=== PATIENT | female | born 1965 | race African-American/Black ===

== ENCOUNTER 2017-12-25 11:00 | Emergency (ER) | payer SELFPAY ==
[2017-12-25 12:17] LABS: INFLUENZA A PATIENT NEGATIVE (NEGATIVE); INFLUENZA B PATIENT NEGATIVE (NEGATIVE); OBC FLU VALID
== END 2017-12-25 13:03 | disposition home or self-care (01) ==
LOC: ER 11:00
DX: B34.9 Viral infection, unspecified (principal); I10 Essential (primary) hypertension
CPT/HCPCS: 71046; 87804; 87804-59; 99285-25

== ENCOUNTER 2018-05-19 10:08 | Emergency (ER) | payer SELFPAY ==
[2018-05-19] MEDS: KETOROLAC 60 MG/2 ML INJ. IM (10:38)
== END 2018-05-19 10:57 | disposition home or self-care (01) ==
LOC: ER 10:08
DX: M62.838 Other muscle spasm (principal); M79.1 Myalgia; M25.511 Pain in right shoulder; M54.2 Cervicalgia; I10 Essential (primary) hypertension
CPT/HCPCS: 96372; 99283; J1885

== ENCOUNTER 2019-01-30 10:49 | Emergency (ER) | payer SELFPAY ==
[~2019-01-30] VITALS: Ht 160 cm; Wt 70.3 kg
[~2019-01-30 10:49] MED LIST: ORPH100T PO; OSEL75CA PO
[2019-01-30] MEDS ORDERED: LISI1TAB7 PO (10:52)
[2019-01-30] MEDS ORDERED: ATORVASTATIN CA80 MG PO (10:52)
[2019-01-30] MEDS ORDERED: NAPROXEN 500 MG TABLET PO STA (11:24)
[2019-01-30] MEDS ORDERED: HYDROcodone/APAP 5/325MG 1 TAB TABLET PO ONE (11:30)
[2019-01-30] MEDS ORDERED: CYCLOBENZAPRINE 10 MG TABLET. PO ONE (11:30)
--- NOTE | 2019-01-30 11:45 | RAD ---
Portable chest, 01/30/2019: HISTORY: Mid back pain, chills Comparison is made to a study from 12/25/2017. The heart size is normal. The lungs are clear. There is no evidence of pleural fluid. IMPRESSION: No acute cardiopulmonary abnormality is detected. Electronically signed by: Vic Altamirano MD (01/30/2019 11:43 AM) [facility]
[2019-01-30 11:51] LABS: BASO # 0.1 x10^3/uL (0.0-0.2); BASO % 1 % (0-3); EOS # 0.1 x10^3/uL (0.0-0.7); EOS % 1 % (0-3); HEMATOCRIT 41.3 % (36.0-47.0); HEMOGLOBIN 13.7 g/dL (12.0-15.5); LYMPH # 2.2 x10^3/uL (1.0-4.8); LYMPH % 31 % (24-48); MEAN CORPUSCULAR HEMOGLOBIN 28 pg (25-35); MEAN CORPUSCULAR HGB CONC 33 g/dL (31-37); MEAN CORPUSCULAR VOLUME 85 fL (79-100); MONO # 0.3 x10^3/uL (0.0-1.1); MONO % 4 % (0-9); NEUT # 4.7 x10^3uL (1.8-7.7); NEUT % 63 % (31-73); PLATELET COUNT 242 x10^3/uL (140-400); RED BLOOD COUNT 4.84 x10^6/uL (3.50-5.40); RED CELL DISTRIBUTION WIDTH 14.7 % (11.5-14.5); WHITE BLOOD COUNT 7.4 x10^3/uL (4.0-11.0)
[2019-01-30 12:08] LABS: ALBUMIN 3.5 g/dL (3.4-5.0); ALBUMIN/GLOBULIN RATIO 0.8 (1.0-1.7); CALCIUM 9.2 mg/dL (8.5-10.1); CREATININE 0.7 mg/dL (0.6-1.0); GFR 105.1; MAGNESIUM 2.1 mg/dL (1.8-2.4); TOTAL BILIRUBIN 0.5 mg/dL (0.2-1.0); TOTAL PROTEIN 7.9 g/dL (6.4-8.2)
[2019-01-30 12:09] LABS: INFLUENZA A PATIENT NEGATIVE (NEGATIVE); INFLUENZA B PATIENT NEGATIVE (NEGATIVE)
[2019-01-30 12:10] LABS: POTASSIUM 3.4 mmol/L (3.5-5.1)
--- NOTE | 2019-01-30 13:07 | EKG ---
[facility] [address] [place] [address] Test Date: 2019-01-30 Test Time: 11:50:59 Pat Name: EVA CABRERA Department: Room: Gender: F Skein Yarn Dyer: : 1965 Requested By: ÁNGELA MCLAUGHLIN Order Number: [id number] Reading MD: Mandeep Agosto Measurements Intervals [place] Rate: 75 P: 141 SC: 126 QRS: 98 QRSD: 84 T: 125 QT: 380 QTc: 427 Interpretive Statements SINUS RHYTHM RIGHTWARD AXIS QRS(T) CONTOUR ABNORMALITY CONSIDER HIGH LATERAL INFARCT Electronically Signed On 02-06-2019 12:58:54 CDT by Mandeep Agosto
[2019-01-30 13:52] LABS: BILIRUBIN,URINE NEGATIVE (NEG); CLARITY,URINE CLEAR; COLOR,URINE YELLOW; NITRITE,URINE NEGATIVE (NEG); PROTEIN,URINE NEGATIVE (NEG-TRACE); UROBILINOGEN,URINE 0.2 mg/dL (0.2 mg/dL)
[2019-01-30 13:59] LABS: BACTERIA,URINE FEW /HPF (0-FEW); BARBITURATES NEG (NEG); BENZODIAZEPINES NEG (NEG); CANNABINOIDS POS (NEG); COCAINE NEG (NEG); METHADONE NEG (NEG); OPIATES POS (NEG); PHENCYCLIDINE NEG (NEG); RBC,URINE OCC /HPF (0-2); SQUAMOUS EPITHELIAL CELL,UR MOD /LPF; WBC,URINE 0 /HPF (0-4)
[2019-01-30 14:00] LABS: AMPHETAMINE/METHAMPHETAMINE NEG (NEG)
[2019-01-30] MEDS ORDERED: DICL50TA4 PO (14:37)
[2019-01-30] MEDS ORDERED: CYCL10TA2 PO (14:37)
--- NOTE | 2019-01-30 14:38 | PHYS DOC ---
Past Medical History Past Medical History: Hypertension Past Surgical History: No Surgical History Alcohol Use: None Drug Use: None Adult General Chief Complaint Chief Complaint: GENERALIZED BODY ACHES HPI HPI Patient is a 54 year old female with a history of hypertension who presents to the ED today complaining of mild mid back pain, diarrhea, nasal congestion and chills that began yesterday. Patient denies any fever. Denies any nausea vomiting. Denies any chest pain or shortness of breath. Patient denies any alleviating or exacerbating factors for her symptoms. Denies any abdominal pain. Review of Systems Review of Systems Constitutional: Reports chills, denies fever[] Eyes: Denies change in visual acuity, redness, or eye pain [] HENT: Reports nasal congestion, denies sore throat [] Respiratory: Denies cough or shortness of breath [] Cardiovascular: No additional information not addressed in HPI [] GI: Reports diarrhea. Denies abdominal pain, nausea, vomiting, bloody stools : Denies dysuria or hematuria [] Musculoskeletal: Denies back pain or joint pain [] Integument: Denies rash or skin lesions [] Neurologic: Denies headache, focal weakness or sensory changes [] All other systems were reviewed and found to be within normal limits, except as documented in this note. Current Medications Current Medications Current Medications Medications (Trade) Dose Ordered Sig/Zara Start Time Stop Time Status Last Admin Dose Admin Acetaminophen/ Hydrocodone Bitart (Lortab 5/325) 2 tab 1X ONCE 01/30/19 11:30 01/30/19 11:31 DC 01/30/19 11:47 2 TAB Cyclobenzaprine HCl (Flexeril) 10 mg 1X ONCE 01/30/19 11:30 01/30/19 11:31 DC 01/30/19 11:46 10 MG Naproxen (Naprosyn) 500 mg 1X STAT 01/30/19 11:24 01/30/19 11:29 DC 01/30/19 11:46 500 MG Allergies Allergies Allergies Coded Allergies Type Severity Reaction Last Updated Verified No Known Drug Allergies 12/25/17 No Physical Exam Physical Exam Constitutional: Well developed, well nourished, no acute distress, non-toxic appearance. [] HENT: Normocephalic, atraumatic, bilateral external ears normal, oropharynx moist, no oral exudates, nose normal. [] Eyes: PERRLA, EOMI, conjunctiva normal, no discharge. [] Neck: Normal range of motion, no tenderness, supple, no stridor. [] Cardiovascular:Heart rate regular rhythm, no murmur [] Lungs & Thorax: Bilateral breath sounds clear to auscultation [] Abdomen: Bowel sounds normal, soft, no tenderness, no masses, no pulsatile masses. [] Skin: Warm, dry, no erythema, no rash. [] Back: No tenderness, no CVA tenderness. [] Extremities: No tenderness, no cyanosis, no clubbing, ROM intact, no edema. [] Neurologic: Alert and oriented X 3, normal motor function, normal sensory function, no focal deficits noted. [] Psychologic: Affect normal, judgement normal, mood normal. [] Current Patient Data Vital Signs Vital Signs Date Time Temp Pulse Resp B/P (MAP) Pulse Ox O2 Delivery O2 Flow Rate FiO2 01/30/19 11:47 20 01/30/19 11:10 98.4 92 156/74 (101) 100 Room Air 98.4 Lab Values Laboratory Tests Test 01/30/19 11:41 01/30/19 13:44 White Blood Count 7.4 x10^3/uL (4.0-11.0) Red Blood Count 4.84 x10^6/uL (3.50-5.40) Hemoglobin 13.7 g/dL (12.0-15.5) Hematocrit 41.3 % (36.0-47.0) Mean Corpuscular Volume 85 fL (79-100) Mean Corpuscular Hemoglobin 28 pg (25-35) Mean Corpuscular Hemoglobin Concent 33 g/dL (31-37) Red Cell Distribution Width 14.7 % (11.5-14.5) H Platelet Count 242 x10^3/uL (140-400) Neutrophils (%) (Auto) 63 % (31-73) Lymphocytes (%) (Auto) 31 % (24-48) Monocytes (%) (Auto) 4 % (0-9) Eosinophils (%) (Auto) 1 % (0-3) Basophils (%) (Auto) 1 % (0-3) Neutrophils # (Auto) 4.7 x10^3uL (1.8-7.7) Lymphocytes # (Auto) 2.2 x10^3/uL (1.0-4.8) Monocytes # (Auto) 0.3 x10^3/uL (0.0-1.1) Eosinophils # (Auto) 0.1 x10^3/uL (0.0-0.7) Basophils # (Auto) 0.1 x10^3/uL (0.0-0.2) D-Dimer (Eliva) 0.35 ug/mlFEU (0.00-0.50) Sodium Level 139 mmol/L (136-145) Potassium Level 3.4 mmol/L (3.5-5.1) L Chloride Level 102 mmol/L (98-107) Carbon Dioxide Level 28 mmol/L (21-32) Anion Gap 9 (6-14) Blood Urea Nitrogen 12 mg/dL (7-20) Creatinine 0.7 mg/dL (0.6-1.0) Estimated GFR (Cockcroft-Gault) 105.1 BUN/Creatinine Ratio 17 (6-20) Glucose Level 114 mg/dL (70-99) H Calcium Level 9.2 mg/dL (8.5-10.1) Magnesium Level 2.1 mg/dL (1.8-2.4) Total Bilirubin 0.5 mg/dL (0.2-1.0) Aspartate Amino Transferase (AST) 21 U/L (15-37) Alanine Aminotransferase (ALT) 22 U/L (14-59) Alkaline Phosphatase 89 U/L (46-116) Creatine Kinase 149 U/L (26-192) Creatine Kinase MB (Mass) 0.6 ng/mL (0.0-3.6) Creatine Kinase MB Relative Index 0.4 % (0-4) Troponin I Quantitative < 0.017 ng/mL (0.000-0.055) YU-Kef-K-Type Natriuretic Peptide 94 pg/mL (0-124) Total Protein 7.9 g/dL (6.4-8.2) Albumin 3.5 g/dL (3.4-5.0) Albumin/Globulin Ratio 0.8 (1.0-1.7) L Lipase 42 U/L (73-393) L Thyroid Stimulating Hormone (TSH) 1.652 uIU/mL (0.358-3.74) Influenza Type A Antigen Negative (NEGATIVE) Influenza Type B Antigen Negative (NEGATIVE) Urine Collection Type Unknown Urine Color Yellow Urine Clarity Clear Urine pH 7.0 Urine Specific [place] 1.010 Urine Protein Negative mg/dL (NEG-TRACE) Urine Glucose (UA) Negative mg/dL (NEG) Urine Ketones (Stick) Negative mg/dL (NEG) Urine Blood Trace (NEG) Urine Nitrite Negative (NEG) Urine Bilirubin Negative (NEG) Urine Urobilinogen Dipstick 0.2 mg/dL (0.2 mg/dL) Urine Leukocyte Esterase Negative (NEG) Urine RBC Occ /HPF (0-2) Urine WBC 0 /HPF (0-4) Urine Squamous Epithelial Cells Mod /LPF Urine Bacteria Few /HPF (0-FEW) Urine Opiates Screen Pos (NEG) Urine Methadone Screen Neg (NEG) Urine Barbiturates Neg (NEG) Urine Phencyclidine Screen Neg (NEG) Urine Amphetamine/Methamphetamine Neg (NEG) Urine Benzodiazepines Screen Neg (NEG) Urine Cocaine Screen Neg (NEG) Urine Cannabinoids Screen Pos (NEG) Urine Ethyl Alcohol Neg (NEG) Laboratory Tests 01/30/19 11:41 Laboratory Tests 01/30/19 11:41 EKG EKG Interpreted by Dr. Chavis sinus rhythm HR 75 no STEMI[] Radiology/Procedures Radiology/Procedures []PROCEDURE: PORTABLE CHEST 1V Portable chest, 01/30/2019: HISTORY: Mid back pain, chills Comparison is made to a study from 12/25/2017. The heart size is normal. The lungs are clear. There is no evidence of pleural fluid. IMPRESSION: No acute cardiopulmonary abnormality is detected. Electronically signed by: Vic Altamirano MD (01/30/2019 11:43 AM) [facility] DICTATED and SIGNED BY: VIC ALTAMIRANO MD DATE: 01/30/19 1143 Course & Med Decision Making Course & Med Decision Making Pertinent Labs and Imaging studies reviewed. (See chart for details) This is a 54-year-old female patient presenting to the ED today with nasal congestion, body, chills, diarrhea, and mid back pain, symptoms began yesterday. Patient's labs are negative for any acute findings including cardiac workup, urine negative for any infection. D-dimer is normal. Pain appears musculoskeletal. Patient is in no distress, was discharged to home. Follow-up with primary care doctor in one week. OTC medications for diarrhea Dragon Disclaimer Dragon Disclaimer This electronic medical record was generated, in whole or in part, using a voice recognition dictation system. Departure Departure Impression: Primary Impression: Back pain Additional Impressions: Chills Upper respiratory infection Disposition: 01 HOME, SELF-CARE Condition: STABLE Referrals: NO PCP (PCP) follow up in 1 week Patient Instructions: Back Pain, Adult, Diarrhea, [id number], Upper Respiratory Infection, Adult, [id number] Additional Instructions: You were evaluated in the emergency room for multiple complaints including chills, congestion, diarrhea, back pain, your work up in the emergency room is negative. Use the prescribed medications as needed. You can take over-the- counter Imodium for your diarrhea. Scripts Diclofenac Sodium (DICLOFENAC SODIUM) 50 Mg Tablet.dr 1 TAB PO BID, #20 TAB 0 Refills Prov: ÁNGELA MCLAUGHLIN APRN 01/30/19 Cyclobenzaprine Hcl (CYCLOBENZAPRINE HCL) 10 Mg Tablet 1 TAB PO TID, #30 TAB Prov: ÁNGELA MCLAUGHLIN APRN 01/30/19 Problem Qualifiers Primary Impression: Back pain Back pain location: thoracic back pain Chronicity: unspecified Back pain laterality: bilateral Qualified Codes: M54.6 - Pain in thoracic spine Additional Impressions: Upper respiratory infection URI type: unspecified URI Qualified Codes: J06.9 - Acute upper respiratory infection, unspecified ÁNGELA MCLAUGHLIN APRN Jan 30, 2019 14:38
[2019-01-30 14:44] VITALS: BP 148/77
== END 2019-01-30 14:48 | disposition home or self-care (01) ==
LOC: ER 10:49
DX: M54.6 Pain in thoracic spine (principal); J06.9 Acute upper respiratory infection, unspecified; R68.83 Chills (without fever); I10 Essential (primary) hypertension
CPT/HCPCS: 36415; 71045; 80053; 80307; 81001; 82553; 83690; 83735; 83880; 84443; 84484; 85025; 85379; 87804; 93005; 99285

== ENCOUNTER 2019-10-04 08:25 | Emergency (ER) | payer SELFPAY ==
[~2019-10-04] VITALS: Ht 160 cm; Wt 70.3 kg
[~2019-10-04 08:25] MED LIST changes: +ATORVASTATIN CA80 MG PO; +CYCL10TA2 PO; +DICL50TA4 PO; +LISI1TAB20 PO
[2019-10-04 08:38] VITALS: BP 133/89
[2019-10-04] MEDS ORDERED: IV NORMAL SALINE 1000ML BAG 1,000 ML IV SCH (08:57)
[2019-10-04] MEDS ORDERED: ORPHENADRINE CITRATE 60 MG/2 ML VIAL. IV ONE (09:00)
[2019-10-04] MEDS ORDERED: KETOROLAC 30 MG/ML VIAL. IV ONE (09:00)
--- NOTE | 2019-10-04 09:03 | PHYS DOC ---
Past Medical History Past Medical History: Hypertension Past Surgical History: No Surgical History Smoking: Cigarettes Alcohol Use: None Drug Use: None Adult General Chief Complaint Chief Complaint: FLANK PAIN HPI HPI Patient is a 54 year old female patient with history of hypertension and dyslip idemia who presents with complaint of flank pain. Patient complaining of left lower back and flank pain since 2200 last night as a constant and sharp pain without radiation that getting worse with movement. Patient denies nausea, vomiting, urinary symptoms, fever and chills, history of the same pain. Patient states she had 3 episodes of diarrhea since the pain was started. Patient rated her pain 10 over 10 and denies taking any pain medication since her pain was and started last night. Review of Systems Review of Systems Constitutional: Denies fever or chills [] Eyes: Denies change in visual acuity, redness, or eye pain [] HENT: Denies nasal congestion or sore throat [] Respiratory: Denies cough or shortness of breath [] Cardiovascular: No additional information not addressed in HPI [] GI: Denies abdominal pain, nausea, vomiting, bloody stools or diarrhea [] : Denies dysuria or hematuria [] Musculoskeletal: Reports back pain, denies joint pain [] Integument: Denies rash or skin lesions [] Neurologic: Denies headache, focal weakness or sensory changes [] Endocrine: Denies polyuria or polydipsia [] All other systems were reviewed and found to be within normal limits, except as documented in this note. Current Medications Current Medications Current Medications Medications (Trade) Dose Ordered Sig/Zara Start Time Stop Time Status Last Admin Dose Admin Fentanyl Citrate (Fentanyl 2ml Vial) 50 mcg 1X ONCE 10/04/19 09:30 10/04/19 09:31 DC 10/04/19 09:41 50 MCG Ketorolac Tromethamine (Toradol 30mg Vial) 30 mg 1X ONCE 10/04/19 09:00 10/04/19 09:01 DC 10/04/19 09:12 30 MG Orphenadrine Citrate (Norflex) 60 mg 1X ONCE 10/04/19 09:00 10/04/19 09:01 DC 10/04/19 09:13 60 MG Potassium Chloride (Klor-Con) 40 meq 1X ONCE 10/04/19 11:45 10/04/19 11:46 Sodium Chloride 1,000 ml @ 1,000 mls/hr Q1H 10/04/19 08:57 10/04/19 09:56 DC 10/04/19 09:12 1,000 MLS/HR Allergies Allergies Allergies Coded Allergies Type Severity Reaction Last Updated Verified No Known Drug Allergies 12/25/17 No Physical Exam Physical Exam Constitutional: Well developed, well nourished, moderate distress, non-toxic appearance. [] HENT: Normocephalic, atraumatic. Eyes: PERRLA, EOMI, conjunctiva normal, no discharge. [] Neck: Normal range of motion, no tenderness, supple, no stridor. [] Cardiovascular:Heart rate regular rhythm, no murmur [] Lungs & Thorax: Bilateral breath sounds clear to auscultation [] Abdomen: Bowel sounds normal, soft, no tenderness, no masses, no pulsatile masses. [] Skin: Warm, dry, no erythema, no rash. [] Back: No tenderness, right lower paraspinal and CVA tenderness. [] Extremities: No tenderness, no cyanosis, no clubbing, ROM intact, no edema. [] Neurologic: Alert and oriented X 3, no focal deficits noted. [] Psychologic: Affect normal, judgement normal, mood normal. [] Current Patient Data Vital Signs Vital Signs Date Time Temp Pulse Resp B/P (MAP) Pulse Ox O2 Delivery O2 Flow Rate FiO2 10/04/19 08:38 98.9 92 12 133/89 (104) 100 Room Air 98.9 Lab Values Laboratory Tests Test 10/04/19 08:40 10/04/19 09:15 Urine Collection Type Unknown Urine Color Yellow Urine Clarity Clear Urine pH 8.0 Urine Specific [place] 1.015 Urine Protein Negative mg/dL (NEG-TRACE) Urine Glucose (UA) Negative mg/dL (NEG) Urine Ketones (Stick) Negative mg/dL (NEG) Urine Blood Small (NEG) Urine Nitrite Negative (NEG) Urine Bilirubin Negative (NEG) Urine Urobilinogen Dipstick 0.2 mg/dL (0.2 mg/dL) Urine Leukocyte Esterase Small (NEG) Urine RBC 3-5 /HPF (0-2) Urine WBC Occ /HPF (0-4) Urine Squamous Epithelial Cells Many /LPF Urine Bacteria 0 /HPF (0-FEW) White Blood Count 6.6 x10^3/uL (4.0-11.0) Red Blood Count 4.72 x10^6/uL (3.50-5.40) Hemoglobin 13.7 g/dL (12.0-15.5) Hematocrit 40.6 % (36.0-47.0) Mean Corpuscular Volume 86 fL (79-100) Mean Corpuscular Hemoglobin 29 pg (25-35) Mean Corpuscular Hemoglobin Concent 34 g/dL (31-37) Red Cell Distribution Width 14.3 % (11.5-14.5) Platelet Count 240 x10^3/uL (140-400) Neutrophils (%) (Auto) 63 % (31-73) Lymphocytes (%) (Auto) 30 % (24-48) Monocytes (%) (Auto) 5 % (0-9) Eosinophils (%) (Auto) 1 % (0-3) Basophils (%) (Auto) 1 % (0-3) Neutrophils # (Auto) 4.2 x10^3/uL (1.8-7.7) Lymphocytes # (Auto) 2.0 x10^3/uL (1.0-4.8) Monocytes # (Auto) 0.4 x10^3/uL (0.0-1.1) Eosinophils # (Auto) 0.1 x10^3/uL (0.0-0.7) Basophils # (Auto) 0.0 x10^3/uL (0.0-0.2) Sodium Level 140 mmol/L (136-145) Potassium Level 3.0 mmol/L (3.5-5.1) L Chloride Level 101 mmol/L (98-107) Carbon Dioxide Level 32 mmol/L (21-32) Anion Gap 7 (6-14) Blood Urea Nitrogen 8 mg/dL (7-20) Creatinine 0.8 mg/dL (0.6-1.0) Estimated GFR (Cockcroft-Gault) 90.1 BUN/Creatinine Ratio 10 (6-20) Glucose Level 155 mg/dL (70-99) H Calcium Level 8.9 mg/dL (8.5-10.1) Total Bilirubin 0.3 mg/dL (0.2-1.0) Aspartate Amino Transferase (AST) 12 U/L (15-37) L Alanine Aminotransferase (ALT) 9 U/L (14-59) L Alkaline Phosphatase 81 U/L (46-116) Creatine Kinase 95 U/L (26-192) Total Protein 7.5 g/dL (6.4-8.2) Albumin 3.1 g/dL (3.4-5.0) L Albumin/Globulin Ratio 0.7 (1.0-1.7) L Lipase 37 U/L (73-393) L Laboratory Tests 10/04/19 09:15 Laboratory Tests 10/04/19 09:15 EKG EKG [] Radiology/Procedures Radiology/Procedures [][facility] [address] [place] [address] IMAGING REPORT Signed PATIENT: EVA MALIN ACCOUNT: [id number] : 1965 LOCATION: ER AGE: 54 SEX: F EXAM STATUS: REG ER ORD. PHYSICIAN: LUIS A BLOOM MD REASON: right flank pain PROCEDURE: CT ABDOMEN PELVIS WO CONTRAST CT Abdomen and Pelvis without contrast; CT lumbar spine without contrast History: Right flank pain Technique: Noncontrast CT imaging was performed of the abdomen and pelvis. CT imaging was also performed of the lumbar spine. Multiplanar images are reviewed. Exposure: One or more of the following individualized dose reduction techniques were utilized for this examination: 1. Automated exposure control 2. Adjustment of the mA and/or kV according to patient size 3. Use of iterative reconstruction technique. Comparison: None Findings: There is no hydronephrosis or renal calculus. Ureters in the pelvis are difficult to visualize in their entirety, no convincing ureteral calculus. There is partially calcified nodule right lower lobe near the lung base. Accurate evaluation of abdominal visceral organs is limited without intravenous contrast. There is no obvious abnormality of the spleen, liver, or pancreas. There is no adrenal nodularity. Gallbladder is present without obvious intraluminal abnormality by CT. Accurate evaluation of bowel is limited without oral contrast. There is no significant free air, free fluid, bowel dilatation. Normal caliber appendix is visualized without adjacent inflammatory change. There is some scattered calcified plaque of the abdominal aorta and iliac arteries. Impression: 1. There is no hydronephrosis or convincing urolithiasis. There is no CT evidence of acute appendicitis. Lumbar spine FINDINGS: Lumbar vertebral body stature and AP alignment are maintained. No acute lumbar spine fracture is identified. There is very mild lumbar dextroscoliosis. Intervertebral disc spaces are relatively maintained, mild narrowing greater posteriorly at L5-S1. No significant lumbar spinal stenosis is identified on this nonmyelographic exam. Osseous lumbar neural foramina are not significantly narrowed. There is multilevel lumbar facet degenerative change. There is incomplete fusion of the posterior elements of the more inferior sacrum. IMPRESSION: 1. No acute lumbar spine fracture is identified. No significant lumbar spinal stenosis is identified on this nonmyelographic exam. There is multilevel lumbar facet degenerative change and very mild dextroscoliosis. Electronically signed by: Gely Silva MD (10/04/2019 10:14 AM) [id number] DICTATED and SIGNED BY: GELY SILVA MD DATE: 10/04/19 1014 Course & Med Decision Making Course & Med Decision Making Pertinent Labs and Imaging studies reviewed. (See chart for details) Evaluation of patient in ER showed 54-year-old female patient with complaining of right lower back and flank pain getting worse with movement. Patient treated with IV fluid, Toradol and fentanyl with improvement of her pain. Patient had unremarkable CT of abdomen and pelvis and lumbar spine. Labs showed mild UTI and potassium of 3.0 and treated with oral potassium in ER. Plan to discharge patient home with diagnosis of muscle strain and UTI. I've spoken with the patient and/or caregivers. I've explained the patient's condition, diagnosis and treatment plan based on information available to me at this time. I've answered the patient's and/or caregivers questions and addressed any concerns. The patient and/or caregivers have a good understanding the patient's diagnosis, condition and treatment plan as can be expected at this point. Vital signs have been stabilized. The patient's condition is stable for discharge from the emergency department. The patient will pursue further outpatient evaluation with her primary care provider or other designated consulting physician as outlined in the discharge instructions. Patient and/or caregivers are agreeable to this plan of care and follow-up instructions have been explained in detail. The patient and/or caregivers have received these instructions in written format and expressed understanding of these discharge instructions. The patient and her caregivers are aware that if any significant change in condition or worsening of symptoms should prompt him to immediately return to this of the closest emergency de partment. If an emergent department is not readily available I would encourage him to call 911. Manjinder Disclaimer Dragon Disclaimer This electronic medical record was generated, in whole or in part, using a voice recognition dictation system. Departure Departure Impression: Primary Impression: Acute lumbosacral myofascial strain Additional Impressions: Urinary tract infection Hypokalemia Disposition: HOME, SELF-CARE (at 1132) Condition: IMPROVED Referrals: NO PCP (PCP) Patient Instructions: Hypokalemia, Lumbosacral Strain, Urinary Tract Infection Additional Instructions: Drink plenty of liquids Follow-up with your primary care physician in 3-5 days Return to ER if not getting better Apply ice on your back Scripts Tramadol Hcl (ULTRAM) 50 Mg Tablet 50 MG PO Q6HRS PRN for PAIN, #14 TAB 0 Refills Prov: LUIS A BLOOM MD 10/04/19 Cyclobenzaprine Hcl (CYCLOBENZAPRINE HCL) 10 Mg Tablet 1 TAB PO TID, #21 TAB Prov: LUIS A BLOOM MD 10/04/19 Ciprofloxacin Hcl (CIPRO) 250 Mg Tablet 1 TAB PO BID for infection, #6 TAB Prov: LUIS A BLOOM MD 10/04/19 Problem Qualifiers Primary Impression: Acute lumbosacral myofascial strain Encounter type: initial encounter Qualified Codes: S39.012A - Strain of muscle, fascia and tendon of lower back, initial encounter Additional Impressions: Urinary tract infection Urinary tract infection type: site unspecified Hematuria presence: with hematuria Qualified Codes: N39.0 - Urinary tract infection, site not specified; R31.9 - Hematuria, unspecified LUIS A BLOOM MD Oct 04, 2019 09:02
[2019-10-04 09:12] LABS: BILIRUBIN,URINE NEGATIVE (NEG); CLARITY,URINE CLEAR; COLOR,URINE YELLOW; NITRITE,URINE NEGATIVE (NEG); PROTEIN,URINE NEGATIVE (NEG-TRACE); UROBILINOGEN,URINE 0.2 mg/dL (0.2 mg/dL)
[2019-10-04 09:30] LABS: BACTERIA,URINE 0 /HPF (0-FEW); SQUAMOUS EPITHELIAL CELL,UR MANY /LPF; WBC,URINE OCC /HPF (0-4)
[2019-10-04] MEDS ORDERED: fentaNYL PF VIAL 100 MCG/2 ML VIAL IVP ONE (09:30)
[2019-10-04 09:40] LABS: CALCIUM 8.9 mg/dL (8.5-10.1); CREATININE 0.8 mg/dL (0.6-1.0); GFR 90.1
[2019-10-04 09:46] LABS: ALBUMIN 3.1 g/dL (3.4-5.0); ALBUMIN/GLOBULIN RATIO 0.7 (1.0-1.7); TOTAL BILIRUBIN 0.3 mg/dL (0.2-1.0); TOTAL PROTEIN 7.5 g/dL (6.4-8.2)
[2019-10-04 09:49] LABS: BASO % 1 % (0-3); EOS # 0.1 x10^3/uL (0.0-0.7); EOS % 1 % (0-3); HEMATOCRIT 40.6 % (36.0-47.0); HEMOGLOBIN 13.7 g/dL (12.0-15.5); LYMPH % 30 % (24-48); MEAN CORPUSCULAR HEMOGLOBIN 29 pg (25-35); MEAN CORPUSCULAR HGB CONC 34 g/dL (31-37); MEAN CORPUSCULAR VOLUME 86 fL (79-100); MONO # 0.4 x10^3/uL (0.0-1.1); MONO % 5 % (0-9); NEUT # 4.2 x10^3/uL (1.8-7.7); NEUT % 63 % (31-73); PLATELET COUNT 240 x10^3/uL (140-400); RED BLOOD COUNT 4.72 x10^6/uL (3.50-5.40); RED CELL DISTRIBUTION WIDTH 14.3 % (11.5-14.5); WHITE BLOOD COUNT 6.6 x10^3/uL (4.0-11.0)
--- NOTE | 2019-10-04 10:17 | RAD ---
CT Abdomen and Pelvis without contrast; CT lumbar spine without contrast History: Right flank pain Technique: Noncontrast CT imaging was performed of the abdomen and pelvis. CT imaging was also performed of the lumbar spine. Multiplanar images are reviewed. Exposure: One or more of the following individualized dose reduction techniques were utilized for this examination: 1. Automated exposure control 2. Adjustment of the mA and/or kV according to patient size 3. Use of iterative reconstruction technique. Comparison: None Findings: There is no hydronephrosis or renal calculus. Ureters in the pelvis are difficult to visualize in their entirety, no convincing ureteral calculus. There is partially calcified nodule right lower lobe near the lung base. Accurate evaluation of abdominal visceral organs is limited without intravenous contrast. There is no obvious abnormality of the spleen, liver, or pancreas. There is no adrenal nodularity. Gallbladder is present without obvious intraluminal abnormality by CT. Accurate evaluation of bowel is limited without oral contrast. There is no significant free air, free fluid, bowel dilatation. Normal caliber appendix is visualized without adjacent inflammatory change. There is some scattered calcified plaque of the abdominal aorta and iliac arteries. Impression: 1. There is no hydronephrosis or convincing urolithiasis. There is no CT evidence of acute appendicitis. Lumbar spine FINDINGS: Lumbar vertebral body stature and AP alignment are maintained. No acute lumbar spine fracture is identified. There is very mild lumbar dextroscoliosis. Intervertebral disc spaces are relatively maintained, mild narrowing greater posteriorly at L5-S1. No significant lumbar spinal stenosis is identified on this nonmyelographic exam. Osseous lumbar neural foramina are not significantly narrowed. There is multilevel lumbar facet degenerative change. There is incomplete fusion of the posterior elements of the more inferior sacrum. IMPRESSION: 1. No acute lumbar spine fracture is identified. No significant lumbar spinal stenosis is identified on this nonmyelographic exam. There is multilevel lumbar facet degenerative change and very mild dextroscoliosis. Electronically signed by: Omar Daniels MD (10/04/2019 10:14 AM) [id number]
[2019-10-04] MEDS ORDERED: CIPR250T30 PO (11:37)
[2019-10-04] MEDS ORDERED: TRAM-48 PO (11:37)
[2019-10-04] MEDS ORDERED: CYCL10TA2 PO (11:37)
[2019-10-04] MEDS ORDERED: POTASSIUM CHLORIDE 20 MEQ TABLET.ER. PO ONE (11:45)
== END 2019-10-04 11:50 | disposition home or self-care (01) ==
LOC: ER 08:25
DX: S39.012A Strain of muscle, fascia and tendon of lower back, initial encounter (principal); N39.0 Urinary tract infection, site not specified; E87.6 Hypokalemia; R19.7 Diarrhea, unspecified; F17.210 Nicotine dependence, cigarettes, uncomplicated; X58.XXXA Exposure to other specified factors, initial encounter; Y93.89 Activity, other specified; Y92.89 Other specified places as the place of occurrence of the external cause; Y99.8 Other external cause status
CPT/HCPCS: 36415; 74176; 80053; 81001; 82550; 83690; 85025; 87086; 96361; 96374; 96375; 99285; J1885; J2360; J3010; J7030

== ENCOUNTER 2020-05-17 23:45 | Emergency (ER) | payer OTHER ==
[~2020-05-17] VITALS: Ht 160 cm; Wt 72.7 kg
[~2020-05-17 23:45] MED LIST changes: +CIPR250T30 PO; +TRAM-48 PO
--- NOTE | 2020-05-18 00:57 | PHYS DOC ---
Past Medical History Past Medical History: Hypertension Past Surgical History: No Surgical History Smoking Status: Current Every Day Smoker Alcohol Use: None Drug Use: Marijuana General Adult EDM: Chief Complaint: HEADACHE HPI: HPI: 55-year-old female presents the emerge department complaints of headache on her right side, dizziness and lightheadedness. Patient states symptoms started around 230, at that time she took a BC without improvement. She does state she has been treated within the last week secondary to a sinus infection. She denies any blood thinning medications. She denies any weakness to her upper extremities or lower extremities on examination. Nothing makes her symptoms worse, nothing makes her symptoms better. She denies any nausea, vomiting, chest pain, shortness of breath, abdominal pain. Patient describes a pain to her right side of head, states it initially was, and going now is constant. Review of Systems: Review of Systems: Constitutional: Denies fever or chills. [] Eyes: Denies change in visual acuity. [] HENT: Denies nasal congestion or sore throat. [] Respiratory: Denies cough or shortness of breath. [] Cardiovascular: Denies chest pain or edema. [] GI: Denies abdominal pain, nausea, vomiting, bloody stools or diarrhea. [] Musculoskeletal: Denies back pain or joint pain. [] Neurologic: + headache, no focal weakness or sensory changes. [] Heart Score: Risk Factors: Risk Factors: DM, Current or recent (<one month) smoker, HTN, HLP, family history of CAD, obesity. Risk Scores: Score 0 - 3: 2.5% MACE over next 6 weeks - Discharge Home Score 4 - 6: 20.3% MACE over next 6 weeks - Admit for Clinical Observation Score 7 - 10: 72.7% MACE over next 6 weeks - Early Invasive Strategies Allergies: Allergies: Allergies Coded Allergies Type Severity Reaction Last Updated Verified No Known Drug Allergies 12/25/17 No Physical Exam: PE: Constitutional: Well developed, well nourished, no acute distress, non-toxic appearance. [] HENT: Normocephalic, atraumatic, bilateral external ears normal, oropharynx moist, no oral exudates, nose normal. [] Eyes: PERRLA, EOMI, conjunctiva normal, no discharge. [] Neck: Normal range of motion, no tenderness, supple, no stridor. [] Cardiovascular:Heart rate regular rhythm, no murmur [] Lungs & Thorax: Bilateral breath sounds clear to auscultation [] Abdomen: Bowel sounds normal, soft, no tenderness, no masses, no pulsatile masses. [] Skin: Warm, dry, no erythema, no rash. [] Extremities: No tenderness, no edema. [] Neurologic: Alert and oriented X 3, no focal deficits noted. [] Psychologic: Affect normal, judgement normal, mood normal. [] EKG: EKG: [] Radiology/Procedures: Radiology/Procedures: [] Course & Med Decision Making: Course & Med Decision Making Pertinent Labs and Imaging studies reviewed. (See chart for details) []55-year-old female presents the emerge department complaints of headache on her right side, dizziness and lightheadedness. Patient states symptoms started around 230, at that time she took a BC without improvement. She does state she has been treated within the last week secondary to a sinus infection. She denies any blood thinning medications. She denies any weakness to her upper extremities or lower extremities on examination. Nothing makes her symptoms worse, nothing makes her symptoms better. She denies any nausea, vomiting, chest pain, shortness of breath, abdominal pain. Patient describes a pain to her right side of head, states it initially was, and going now is constant. CT negative for bleed - evidence of ethmoidal sinusitis Toradol/Reglan/Bendadryl/IVF with improved Discussed dc with patient, discussed return precautions with patient. Amoxil 500mg BID x 4 more days, she just finished an rx for 10 days Manjinder Disclaimer: Manjinder Disclaimer: This electronic medical record was generated, in whole or in part, using a voice recognition dictation system. Departure Departure Impression: Primary Impression: Headache Qualified Codes: R51 - Headache Additional Impression: Sinus infection Qualified Codes: J32.2 - Chronic ethmoidal sinusitis Disposition: 01 HOME, SELF-CARE Condition: IMPROVED Referrals: UNKNOWN PCP NAME (PCP) Patient Instructions: General Headache Without Cause, [id number], Sinus Headache, [id number] Scripts Amoxicillin (AMOXICILLIN) 500 Mg Capsule 1 CAP PO BID for 4 Days, #8 CAP Prov: SAURABH LUCIA MD 05/18/20 Justicifation of Admission Dx: Justifications for Admission: Justification of Admission Dx: N/A SAURABH LUCIA MD May 18, 2020 00:57
--- NOTE | 2020-05-18 01:25 | RAD ---
CT head without contrast: Reason for examination: Headache. Axial images were obtained through the brain. No contrast was administered. Reconstruction was performed in coronal plane. Exposure: One or more of the following individualized dose reduction techniques were utilized for this examination: 1. Automated exposure control 2. Adjustment of the mA and/or kV according to patient size 3. Use of iterative reconstruction technique. Ventricular systems are symmetric and not abnormally dilated. No midline shift is seen. There is no evidence of intracranial hemorrhage, infarct, mass or edema. No abnormalities of seen at the orbits. The paranasal sinuses show mucosal disease in the maxillary and ethmoid sinuses. Mastoid air cells are clear. No acute skull abnormality is seen. IMPRESSION: No acute intracranial abnormality evident. Mucosal disease in the ethmoid and maxillary sinuses. Electronically signed by: Talia Lee MD (05/18/2020 1:23 AM) [id number]
[2020-05-18] MEDS ORDERED: diphenhydrAMINE 50 MG/ML VIAL IVP ONE (01:30)
[2020-05-18] MEDS ORDERED: KETOROLAC 30 MG/ML VIAL. IVP ONE (01:30)
[2020-05-18] MEDS ORDERED: METOCLOPRAMIDE HCL 10 MG/2 ML VIAL. IVP ONE (01:30)
[2020-05-18] MEDS ORDERED: IV NORMAL SALINE 1000ML BAG 1,000 ML IV ONE (01:30)
[2020-05-18 02:00] VITALS: BP 148/84
[2020-05-18] MEDS ORDERED: AMOX500C PO (02:01)
== END 2020-05-18 02:20 | disposition home or self-care (01) ==
LOC: ER 23:45
DX: J32.2 Chronic ethmoidal sinusitis (principal); R51 Headache; R42 Dizziness and giddiness; I10 Essential (primary) hypertension; F17.200 Nicotine dependence, unspecified, uncomplicated
CPT/HCPCS: 70450; 96374; 96375; 99285; J1200; J1885; J2765; J7030

== ENCOUNTER 2020-11-09 20:38 | Emergency (ER) | payer OTHER ==
[~2020-11-09] VITALS: Ht 160 cm; Wt 70.9 kg
[~2020-11-09 20:38] MED LIST changes: +AMOX500C PO
[2020-11-09] MEDS ORDERED: IV NORMAL SALINE 1000ML BAG 1,000 ML IV ONE (21:30)
[2020-11-09] MEDS ORDERED: methylPREDNISolone SOD SUCC PF 125 MG/2 ML VIAL. IV ONE (21:45)
[2020-11-09] MEDS ORDERED: PROCHLORPERAZINE 10 MG/2 ML VIAL. IV ONE (21:45)
[2020-11-09] MEDS ORDERED: diphenhydrAMINE 50 MG/ML VIAL IVP ONE (21:45)
--- NOTE | 2020-11-09 22:51 | ED.ADGEN ---
Past Medical History Past Medical History: High Cholesterol, Hypertension, Other Additional Past Medical Histor: "BORDERLINE DM" Past Surgical History: No Surgical History Smoking Status: Current Every Day Smoker Alcohol Use: None Drug Use: Marijuana General Adult EDM: Chief Complaint: HEADACHE HPI: HPI: Patient is a 55 year old AA female who presents emergency department complaints of a headache behind the right eye for the last 3 days that radiates to the right side of her neck. He also reports having a decreased appetite but denies any nausea, vomiting, diarrhea, or abdominal pain with a headache. She denies any photosensitivity, vision changes, numbness, tingling, weakness, dizziness, or fever. The patient reports that her was diagnosed with Covid in mid to late September she had body aches at that time but never went and got tested. She states that she has not been able to smell, or taste since September, she also has felt fatigued and has had constant sinus pressure since then. She has been taking Augmentin for sinus infection since October 29. Patient also states that her blood pressure has been higher than normal she takes lisinopril and denies missing any doses. She currently rates her headache a 7 out of 10 on the pain scale, she denies any alleviating factors. Review of Systems: Review of Systems: Complete ROS is negative unless otherwise noted in HPI. Current Medications: Current Medications Medications (Trade) Dose Ordered Sig/Zara Start Time Stop Time Status Last Admin Dose Admin Diphenhydramine HCl (Benadryl) 25 mg 1X ONCE 11/09/20 21:45 11/09/20 21:46 DC 11/09/20 21:49 25 MG Methylprednisolone Sodium Succinate (SOLU-Medrol 125MG VIAL) 125 mg 1X ONCE 11/09/20 21:45 11/09/20 21:46 DC 11/09/20 21:52 125 MG Prochlorperazine Edisylate (Compazine) 10 mg 1X ONCE 11/09/20 21:45 11/09/20 21:46 DC 11/09/20 21:49 10 MG Sodium Chloride 1,000 ml @ 1,000 mls/hr 1X ONCE 11/09/20 21:30 11/09/20 22:29 DC 11/09/20 21:47 1,000 MLS/HR Allergies: Allergies: Allergies Coded Allergies Type Severity Reaction Last Updated Verified No Known Drug Allergies 12/25/17 No Physical Exam: PE: See Above Constitutional: Well developed, well nourished, no acute distress, non-toxic appearance. [] HENT: Normocephalic, atraumatic, bilateral external ears normal, nose normal. [] Eyes: PERRLA, EOMI, conjunctiva normal, no discharge. [] Neck: Normal range of motion, no stridor. [] Cardiovascular:Heart rate regular rhythm Lungs & Thorax: Respirations even and unlabored, no retractions, no respiratory distress Abdomen: soft, no tenderness Skin: Warm, dry, no erythema, no rash. [] Extremities: No cyanosis, ROM intact, no edema. [] Neurologic: Alert and oriented X 3, no focal deficits noted. [] Psychologic: Affect normal, judgement normal, mood normal. [] Current Patient Data: Vital Signs: Vital Signs Date Time Temp Pulse Resp B/P (MAP) Pulse Ox O2 Delivery O2 Flow Rate FiO2 11/09/20 22:53 80 99 11/09/20 20:48 98.3 16 174/86 (115) Room Air 98.3 EKG: EKG: [] Heart Score: Risk Factors: Risk Factors: DM, Current or recent (<one month) smoker, HTN, HLP, family history of CAD, obesity. Risk Scores: Score 0 - 3: 2.5% MACE over next 6 weeks - Discharge Home Score 4 - 6: 20.3% MACE over next 6 weeks - Admit for Clinical Observation Score 7 - 10: 72.7% MACE over next 6 weeks - Early Invasive Strategies Radiology/Procedures: Radiology/Procedures: [] Course & Med Decision Making: Course & Med Decision Making Pertinent Labs and Imaging studies reviewed. (See chart for details) 55-year-old female presented to the emergency department with complaints of a headache behind her right eye that radiated to the right side of her neck for the last 3 days. She was given a liter normal saline, 10 mg of Compazine, 25 mg of Benadryl, and 125 mg of Solu-Medrol. She reported relief of her headache after that time. The patient also reported some post Covid symptoms including lack of taste, sme ll, fatigue, sinus pressure, and increased blood pressure recently. I encouraged the patient to follow-up with her primary care doctor for further evaluation of ongoing post Covid symptoms. I encouraged her to take Tylenol and ibuprofen as needed for pain at home, return to the ER if symptoms worsen. Patient verbalized an understanding of home care, medications, follow-up, and r eturn to ED instructions and was in agreement with the plan of care. [] Dragon Disclaimer: Dragon Disclaimer: This electronic medical record was generated, in whole or in part, using a voice recognition dictation system. Departure Departure Impression: Primary Impression: Migraine headache Additional Impression: Post-COVID syndrome Disposition: 01 DC HOME SELF CARE/HOMELESS Condition: STABLE Referrals: JACINDA ABURTO MD (PCP) Patient Instructions: Migraine Headache, [id number] Additional Instructions: Home to rest, take Tylenol ibuprofen as needed for pain. Follow-up with your primary care doctor about your constant sinus pressure, blood pressure concerns, and loss of taste/smell these symptoms are likely due to post Covid19. Return to the ER if your symptoms worsen or fever develops. Problem Qualifiers Primary Impression: Migraine headache Migraine type: hemiplegic Status migrainosus presence: without status migrainosus Intractability: not intractable Qualified Codes: G43.409 - Hemiplegic migraine, not intractable, without status migrainosus VANESSA MCNAMARA [employer] RES[employer] TECHNICIAN Nov 09, 2020 22:51
[2020-11-09 22:53] VITALS: BP 156/91
== END 2020-11-09 23:10 | disposition home or self-care (01) ==
LOC: ER 20:38
DX: G43.409 Hemiplegic migraine, not intractable, without status migrainosus (principal); E78.00 Pure hypercholesterolemia, unspecified; I10 Essential (primary) hypertension; F17.200 Nicotine dependence, unspecified, uncomplicated
CPT/HCPCS: 96361; 96374; 96375; 99284; J0780; J1200; J2930; J7030